=== PATIENT | female | born 2000 | race African-American/Black ===

== ENCOUNTER 2020-07-15 06:32 | Emergency (ER) | payer SELFPAY ==
[~2020-07-15] VITALS: Ht 167.6 cm; Wt 59.0 kg
[~2020-07-15 06:32] MED LIST: PRENATAL
[2020-07-15 06:45] VITALS: BP 104/65
== END 2020-07-15 07:22 | disposition left against medical advice (07) ==
LOC: EDSTATUS 06:32 → ER 06:32
DX: Z53.21 Procedure and treatment not carried out due to patient leaving prior to being seen by health care provider (principal)
CPT/HCPCS: 93005